=== PATIENT | female | born 1980 | race Caucasian/White ===

== ENCOUNTER → 2016-07-10 | Outpatient (CLI) | payer MEDICAID ==
--- NOTE | 2016-07-10 15:09 | DX ---
Chest, Two Views at 1420 hours History: R07.9, R00.2, Palpitations. Comparison: None. Findings: Cardiac silhouette is within normal range. In the right lower lobe is a 3 mm probably benig n pulmonary nodule. No pneumonia, congestive heart failure, pleural effusion, or pneumothorax. Impression: 1. Probably benign right lower lobe 3 mm pulmonary nodule. Recommend follow-up chest x-ray in 6 month s. 2. No acute pulmonary disease. A Follow-Up Required message has been communicated to Vincent Bose MD via the [facility] Result system on 07/10/2016 15:08, Message ID [id number].
== END ==
LOC: FIMAGING 14:25
PROVIDERS: ATTEND Internal Medicine
DX: R07.9 Chest pain, unspecified (principal); R00.2 Palpitations; R91.8 Other nonspecific abnormal finding of lung field

== ENCOUNTER 2017-02-15 12:01 | Emergency (ER) | payer MEDICAID ==
--- NOTE | 2017-02-15 12:50 | EDPHY ---
H & P Stated Complaint: ABDOMINAL BLOATING X10 DAYS SENT BY PCP - Personal History LMP (Females 10-55): 8-14 Days Ago Tetanus Vaccine Date: < 10 years - Medical/Surgical History Hx Asthma: No Hx Chronic Respiratory Disease: No Hx Diabetes: No Hx Cardiac Disease: No Hx Renal Disease: No Hx Cirrhosis: No Hx Alcoholism: Yes Hx HIV/AIDS: No Hx Splenectomy or Spleen Trauma: No Other PMH: ASTHMA. . ANOREXIA X 4MTHS - Social History Smoking Status: Never smoked Time Seen by Provider: 02/15/17 12:26 HPI/ROS: CHIEF COMPLAINT: Abdominal bloating HISTORY OF PRESENT ILLNESS: 36-year-old female history of daily alcohol use, in the ER complaining of progressive abdominal distention for the past 3 weeks. Has been followed by her primary care provider recommend she go to the emergency department for evaluation progressive abdominal bloating. Complaining of progressive abdominal discomfort , early satiety, dyspnea however she is able tolerate oral intake with no nausea no vomiting no diarrhea. Bowel movements normal. Urinary habits normal. Patient drinks 1 bottle of wine per day and is currently being followed by therapist for her history of alcohol use in the eating disorders. No flu-like symptoms. No fever or chills. Denies: Fever, chills, flu-like symptoms, back or flank pain REVIEW OF SYSTEMS: A ten point review of systems was performed and is negative with the exception of the items mentioned in the HPI PAST MEDICAL & SURGICAL HISTORY: History of eating disorder. History of alcoholism. SOCIAL HISTORY: Drinks 1 bottle of wine per day PHYSICAL EXAM (Prior to examination, patient consented to physical exam, hands were washed and my usual and customary physical exam procedures followed) 1) GENERAL: Well-developed, well-nourished, alert and oriented. Appears to be in no acute distress. 2) HEAD: Normocephalic, atraumatic 3) HEENT: Positive scleral icterus. Moist mucous membranes 4) NECK: Full range of motion, no meningeal signs. 5) LUNGS: Clear auscultation bilaterally, no wheezes, no rhonchi, no retractions. 6) HEART: Regular rate and rhythm, no murmur, no heave, no gallop. 7) ABDOMEN: positive abdominal distension. No guarding, no rebound, no focal tenderness, negative McBurney's, negative Colon's, negative Rovsing's, negative peritoneal sign, 8) MUSCULOSKELETAL: Moving all extremities, no focal areas of tenderness, no obvious trauma. No peripheral edema or discoloration. 9) BACK: No CVA tenderness 10) SKIN: No rash, no petechiae. 11) Psychiatric: Patient is oriented X 3, there is no agitation. DIFFERENTIAL DIAGNOSIS: in no particular order including but not limited to new onset ascites, cirrhosis, malignancy, hepatic encephalopathy (Marce,David Cassidy) Constitutional: Initial Vital Signs Temperature (C) 36.9 C 02/15/17 12:04 Heart Rate 78 02/15/17 12:04 Respiratory Rate 18 02/15/17 12:04 Blood Pressure 115/85 H 02/15/17 12:04 O2 Sat (%) 99 02/15/17 12:04 O2 Delivery Mode Room Air Allergies/Adverse Reactions: cefadroxil [From Durice[facility]] Allergy (Verified 02/15/17 14:03) Home Medications: Medication Instructions Recorded NK [No Known Home Meds] 05/16/16 Medical Decision Making Procedures: Procedure: Limited abdominal ultrasound Limited abdominal ultrasound for abdominal pain and distension 1) The right upper quadrant was visualized and was found to be negative for ascites 2) The left upper quadrant was visualized and found to be negative for ascites The study was felt to be positive for abdominal ascites. The procedure was performed by myself and images reviewed by myself. Interpretation was performed by myself, Dr. Isaac Orozco. (Isaac Orozco) ED Course/Re-evaluation: This patient was re-evaluated with serial exams was recently at 5:05 p.m.. Discussed the case with Dr. Isaac Orozco who had evaluated the patient also and has spoken with Gastroenterology as well, please see his note. I discussed the peritoneal fluid aspirate with Dr. Evelina Roche in the ER. I re-evaluated the patient she is feeling improvement. Doubt infectious peritonitis. Think the patient can be discharged. I have offered to [facility] which he declines. She will plan on following up with Gastroenterology as indicated on her aftercare instructions. Definitely if over the weekend (today is Saturday) she develops fever, chills, abdominal pain or any other symptoms she needs to return to the ER immediately for re- evaluation. She feels comfortable being discharged. All questions and concerns addressed by myself. (David Zheng) Other Provider: Independent physician documentation I evaluated and participated in the management of the patient. I also evaluated the patient independently. My co-signature indicates that I have reviewed this chart and I agree with the findings and plan of care as documented. My personal H&P findings include: The patient is a history of chronic alcoholism. She typically drinks a bottle of wine each night. She is referred to the emergency department by her primary care provider for evaluation of abdominal pain and distention. The patient denies fever, melena or hematemesis. The patient does have a history of known alcoholic transaminitis. Patient denies prior history of abdominal surgery. Independent physician physical exam General Appearance: Thin female, no acute distress Eyes: Pupils equal and round no pallor or injection ENT, Mouth: Mucous membranes moist Respiratory: There are no retractions, lungs are clear to auscultation Cardiovascular: Regular rate and rhythm Gastrointestinal: Abdominal distension, positive fluid wave, no peritoneal symptoms Neurological: A&O, normal motor function, normal sensory exam, normal cranial nerves Skin: Warm and dry, no rashes Musculoskeletal: Neck is supple nontender Extremities: symmetrical, full range of motion I reviewed the patient's past medical records, laboratory studies and vital signs. The patient is noted to have the ascites on a bedside ultrasound performed by myself in the emergency department. Given her distention and discomfort a therapeutic and diagnostic paracentesis has been ordered. The patient presents to the ED with newly diagnosed ascites in the setting of chronic alcoholism. The patient has chronically elevated transaminitis. Her INR is normal. She has no significant leukocytosis or newly diagnosed anemia. The patient was taken for diagnostic and therapeutic paracentesis. Consultation was made with Gastroenterology. I spoke with Dr. Alvaro Dotson. The patient will be ruled out for SBP. At this is normal she will be discharged home and follow up as an outpatient with Gastroenterology. She has been instructed to completely abstain from alcohol. She is provided the telephone number for the [facility]. Patient will be turned over to Dr. Roche at shift change awaiting the results of her paracentesis results. (Isaac Orozco) I assumed care of the patient from Dr. Orozco at change of shift. Patient's paracentesis is consistent with simple ascites fluid and does not indicate concerns for SBP. She has 97 WBC and 162 RBC in the peritoneal fluid. No organisms seen on Gram stain. Patient to be discharged to [facility] with follow up with GI. (Evelina Roche) - Data Points Laboratory Results: Laboratory Results 02/15/17 12:29 02/15/17 12:29 Microbiology Results: MICROBIOLOGY 02/15/17 15:35 Peritoneal Fluid - Aspirate Gram Stain - Final 02/15/17 15:35 Peritoneal Fluid - Aspirate Body Fluid Culture - Final Medications Given: Discontinued Medications Lorazepam (Ativan Injection) 1 mg IVP EDNOW ONE Stop: 02/15/17 13:12 Last Admin: 02/15/17 13:21 Dose: 1 mg Departure - Departure Disposition: Home, Routine, Self-Care Clinical Impression: Alcoholic cirrhosis, Portal hypertension, Ascites Condition: Fair Instructions: Ascites (ED) Additional Instructions: 1. It is imperative the you completely stop drinking as you have evidence of severe alcoholic liver disease today. 2. Please return to the ED immediately for severe abdominal pain, fever, vomiting, bloody stool or other concerns. 3. Please follow up with a horizontal boring mill operator Dr. Dotson you have been referred to for further discussion of your liver disease and a complete evaluation. 4. Please follow up as scheduled with your primary care provider. 5. You have been given the contact number of the [facility] which offers a number of resources for assistance with alcohol cessation. Referrals: Eliza Pitts PA [Physician Benefits Consultant] - As per Instructions Alvaro Dotson MD [Medical Doctor] - As per Instructions
[2017-02-15 12:54] LABS: % IMMATURE GRANULYOCYTES 0.7 % (0.0-1.1); ABSOLUTE IMMATURE GRANULOCYTES 0.04 10^3/uL (0.00-0.10); ADD DIFF? NO; ADD MORPH? NO; ADD SCAN? NO; ATYPICAL LYMPHOCYTE FLAG 10 (0-99); FRAGMENT RBC FLAG 0 (0-99); HEMOGLOBIN 13.3 g/dL (12.6-16.3); LEFT SHIFT FLG 0 (0-99); LIPEMIA HEMOLYSIS FLAG 90 (0-99); MEAN CELL HEMOGLOBIN 37.5 pg (27.9-34.1); MEAN PLATELET VOLUME 9.4 fL (8.7-11.7); PLATELET CLUMPS FLAG 0 (0-99); PLATELET COUNT 143 10^3/uL (150-400); RED BLOOD CELL COUNT 3.55 10^6/uL (4.18-5.33); RED CELL DISTRIBUTION WIDTH 12.1 % (11.5-15.2)
[2017-02-15 13:10] LABS: ALANINE AMINOTRANSFERASE 46 IU/L (9-52); ALBUMIN 3.5 g/dL (3.5-5.0); ALKALINE PHOSPHATASE 270 IU/L (38-126); ANION GAP 13 mEq/L (8-16); ASPARTATE AMINOTRANSFERASE 233 IU/L (14-46); BILIRUBIN,TOTAL 3.2 mg/dL (0.1-1.4); BILIRUBIN-CONJUGATED 1.5 mg/dL (0.0-0.5); BILIRUBIN-UNCONJUGATED 1.7 mg/dL (0.0-1.1); CALCIUM 9.4 mg/dL (8.5-10.4); CARBON DIOXIDE 24 mEq/l (22-31); CHLORIDE 93 mEq/L (97-110); CREATININE 0.5 mg/dL (0.6-1.0); GLOMERULAR FILTRATION RATE > 60; GLUCOSE 83 mg/dL (70-100); POTASSIUM 3.7 mEq/L (3.5-5.2); SODIUM 130 mEq/L (134-144); TOTAL PROTEIN 7.2 g/dL (6.3-8.2)
[2017-02-15] MEDS ORDERED: LORazepam 2 MG/ML INJ IVP ONE (13:11)
[2017-02-15 13:16] LABS: INR 1.11 (0.83-1.16); PROTIME(PATIENT) 14.2 SEC (12.0-15.0)
[2017-02-15] MEDS ORDERED: LIDOCAINE 1% 300 MG/30 ML SDV ONE (13:44)
[2017-02-15 16:41] LABS: GLUCOSE, PERITONEAL FLUID 79 mg/dL (55-113)
[2017-02-15 17:27] VITALS: BP 107/91; PULSE 76; RESP 14; TEMP 97.7; O2SAT 97
== END 2017-02-15 17:26 | disposition home or self-care (01) ==
PROC: 0D9W3ZZ Drainage of Peritoneum, Percutaneous Approach (ICD-10-PCS; principal; 2017-02-15)
DX: K70.31 Alcoholic cirrhosis of liver with ascites (principal); K76.6 Portal hypertension; J45.909 Unspecified asthma, uncomplicated
CPT/HCPCS: 96374; G0472; J2060

== ENCOUNTER 2017-02-22 18:02 | Emergency (ER) | payer MEDICAID ==
[2017-02-22 18:42] VITALS: TEMP 98.5
--- NOTE | 2017-02-22 19:24 | EDPHY ---
H & P Stated Complaint: Sent by pcp for low potassium Time Seen by Provider: 02/22/17 19:24 - Personal History LMP (Females 10-55): Over 28 Days Ago Current Tetanus/Diphtheria Vaccine: Yes Current Tetanus Diphtheria and Acellular Pertussis (TDAP): Yes Tetanus Vaccine Date: < 10 years - Medical/Surgical History Hx Asthma: No Hx Chronic Respiratory Disease: No Hx Diabetes: No Hx Cardiac Disease: No Hx Renal Disease: No Hx Cirrhosis: No Hx Alcoholism: Yes Hx HIV/AIDS: No Hx Splenectomy or Spleen Trauma: No Other PMH: ASTHMA. . ANOREXIA X 4MTHS - Social History Smoking Status: Never smoked Constitutional: Initial Vital Signs Temperature (C) 36.9 C 02/22/17 18:39 Heart Rate 100 02/22/17 18:39 Respiratory Rate 19 02/22/17 18:39 Blood Pressure 98/74 L 02/22/17 18:39 O2 Sat (%) 99 02/22/17 18:39 Allergies/Adverse Reactions: cefad[facility] [[facility]] Allergy (Verified 02/15/17 14:03) Home Medications: Medication Instructions Recorded Potassium Chloride Po [Klor 20 meq PO DAILY #3 pkt 02/22/17 Packets 20 meq (*)] Medical Decision Making ED Course/Re-evaluation: CHIEF COMPLAINT: Low potassium HISTORY OF PRESENT ILLNESS: The patient is a 36 y/o female who was sent in by her doctor for low potassium. She was seen in this ED on 02/15/17, 7 days ago, for a distended abdomen. During that visit she was diagnosed with anorexia and ascites, which resulted in her abdomen being drained. She admits to drinking too much and not eating enough, which resulted in the ED visit last week. Since that visit she has been sober for one week. She admits to being sober for a period of time in the past, but this has not been for a while. She was seen by her primary care physician today for a follow-up visit. During this visit her doctor discovered she had low potassium and was then sent to this ED as a precaution. Denies headache, chest pain, fever, paresthesias or other pertinent symptoms. Prior medical records reviewed including ED visit on 02/15/[address] Orozco. REVIEW OF SYSTEMS: A 10 point review of systems was performed and is negative with the exception of the elements mentioned in the history of present illness. PHYSICAL EXAM: HR, BP, O2 Sat, RR. Temp noted General Appearance: Anorexic, cachectic, alert, well hydrated, appropriate, and non-toxic appearing. Head: Atraumatic without scalp tenderness or obvious injury Eyes: Pupils equal, round, reactive to light and accommodation, EOMI, no trauma , no injection. Ears: Clear bilaterally, no perforation, normal landmarks Nose: Atraumatic, no rhinorrhea, clear. Throat: Mucus membranes moist. Neck: Supple, nontender, no lymphadenopathy. Respiratory: No retractions, no distress, no wheezes, and no accessory muscle use. Lungs are clear to auscultation bilaterally. Cardiovascular: Regular rate and rhythm, no murmurs, rubs, or gallops. Good capillary refill all extremities. Gastrointestinal: Abdomen is soft, nontender, non-distended, no masses, no rebound, no guarding, no peritoneal signs. Musculoskeletal: Normal active ROM of all extremities, atraumatic. Neurological: Alert, appropriate, and interactive. Non-focal neuro. Skin: No rashes, good turgor, no nodules on palpation. Past medical history: Ascites, anorexia, alcoholism, asthma Past surgical history: Denies Family history: Denies Social history: Lives in [place], , alcoholic DIFFERENTIAL DIAGNOSIS: The differential diagnosis for the patient's hypokalemia included but was not limited to ascites, anorexia, psychogenic polydipsia, renal insufficiency, and SIADH. MEDICAL DECISION MAKING: The patient is a cachectic 36 y/o female who presents with low potassium levels. She was seen in a follow-up visit for the ascites she was diagnosed with 7 days ago. During this visit she had low potassium levels, which caused her medical provider to refer her to this ED. Plan on labs, IV, 1L IV NS, and 1mg IV Ativan. Patients potassium level is 2.6. Her sodium, chloride, and kidney function are normal. She has asymptomatic hypokalemia. 2035: The nurse spoke to me and discussed how the patient wanted anti- diuretics. However, I will not prescribe her anti-diuretics since she has hypokalemia and this could cause further complications. Reassessed patient and discussed laboratory results. Return precautions provided ; patient is comfortable with this plan. - Data Points Laboratory Results: 02/22/17 19:42 POC Hgb 13.3 gm/dL gm/dL (12.6-16.3) POC Hct 39 % % (38-47) POC Sodium 137 mEq/L mEq/L (134-144) POC Potassium 2.6 mEq/L L* mEq/L (3.3-5.0) POC Chloride 98 mEq/L mEq/L (97-110) POC BUN < 3 mg/dL L mg/dL (7-23) POC Creatinine 0.4 mg/dL L mg/dL (0.6-1.0) POC Glucose 102 mg/dL H mg/dL (70-100) Medications Given: Discontinued Medications Sodium Chloride (Ns) 1,000 mls @ 0 mls/hr IV EDNOW ONE; Wide Open PRN Reason: Protocol Stop: 02/22/17 19:33 Last Admin: 02/22/17 19:44 Dose: 1,000 mls Lorazepam (Ativan Injection) 1 mg IVP EDNOW ONE Stop: 02/22/17 19:36 Last Admin: 02/22/17 19:45 Dose: 1 mg Potassium Chloride (Potassium Chloride Oral Liquid) 20 meq PO EDNOW ONE Stop: 02/22/17 19:56 Last Admin: 02/22/17 20:20 Dose: 20 meq Point of Care Test Results: 02/22/17 19:42 POC Sodium 137 POC Potassium 2.6 L* POC Chloride 98 POC BUN < 3 L POC Creatinine 0.4 L POC Glucose 102 H Departure - Departure Disposition: Home, Routine, Self-Care Clinical Impression: Low blood potassium Condition: Good Instructions: Hypokalemia (ED) Additional Instructions: 1. Take the oral potassium prescription as prescribed. 2. Follow-up with your primary doctor within 72 hours if you do not experience improvement of your symptoms. 3. Return to the Emergency Department for fever, chest pain, shortness of breath , increasing pain or other worsening of condition. Referrals: Lin London MD [Primary Care Provider] - As per Instructions Prescriptions: Potassium Chloride Po [Klor Packets 20 meq (*)] 20 meq PO DAILY #3 pkt Report Scribed for: Laci Bauman Report Scribed by: Carmelina Haile Date of Report: 02/22/17 Time of Report: 19:26
[2017-02-22] MEDS ORDERED: NS 1,000 ML IV ONE (19:32)
[2017-02-22] MEDS ORDERED: LORazepam 2 MG/ML INJ IVP ONE (19:35)
[2017-02-22] MEDS ORDERED: POTASSIUM CL 20 MEQ/15 ML UDCUP PO ONE (19:55)
[2017-02-22 20:40] VITALS: BP 105/73; PULSE 91; RESP 16; O2SAT 100
== END 2017-02-22 20:40 | disposition home or self-care (01) ==
PROC: 3E0337Z Introduction of Electrolytic and Water Balance Substance into Peripheral Vein, Percutaneous Approach (ICD-10-PCS; principal; 2017-02-22)
DX: E87.6 Hypokalemia (principal); E86.9 Volume depletion, unspecified; J45.909 Unspecified asthma, uncomplicated
CPT/HCPCS: 82947-QW; 96374; J2060

== ENCOUNTER → 2017-03-14 | Outpatient (CLI) | payer MEDICAID | LOC: FIMAGING 09:50 | PROVIDERS: ATTEND Internal Medicine | DX: K70.31 Alcoholic cirrhosis of liver with ascites (principal) ==